=== PATIENT | male | born 1990 | race Two or more races ===

== ENCOUNTER 2016-10-18 20:03 | Emergency (ER) | payer OTHER ==
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
[2016-10-18] MEDS ORDERED: HYDROCODONE/ACETAMINOPHEN 5-325 MG 6 TAB/DSPK PO PRN (21:15)
[2016-10-18] MEDS ORDERED: HYDROCODONE/ACETAMINOPHEN 5-325 MG TABLET PO ONE (21:15)
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
[2016-10-18 21:42] VITALS: BP 131/71
== END 2016-10-18 21:25 | disposition home or self-care (01) ==
LOC: ER 20:03
DX: M54.2 Cervicalgia (principal); M54.6 Pain in thoracic spine; M54.9 Dorsalgia, unspecified; V89.2XXA Person injured in unspecified motor-vehicle accident, traffic, initial encounter
CPT/HCPCS: 70450; 72070; 72125; 99284